=== PATIENT | male | born 1980 | race Caucasian/White ===

== ENCOUNTER 2019-03-21 14:02 | Emergency (ER) | payer OTHER ==
[2019-03-21] MEDS ORDERED: OXYCODONE/APAP 5/325 TAB PO ONE (14:18)
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
[2019-03-21 16:20] VITALS: BP 130/65
== END 2019-03-21 16:20 | disposition home or self-care (01) ==
PROC: 0PSHXZZ Reposition Right Radius, External Approach (ICD-10-PCS; principal; 2019-03-21)
DX: S52.571A Other intraarticular fracture of lower end of right radius, initial encounter for closed fracture (principal); S52.611A Displaced fracture of right ulna styloid process, initial encounter for closed fracture; V18.4XXA Pedal cycle driver injured in noncollision transport accident in traffic accident, initial encounter; Y93.55 Activity, bike riding
CPT/HCPCS: A4565; L3925

== ENCOUNTER → 2019-04-05 | Outpatient (CLI) | payer OTHER | LOC: BMCIMAGING 08:37 | PROVIDERS: ATTEND Orthopaedic Surgery Hand Surgery | DX: Z47.89 Encounter for other orthopedic aftercare (principal); S52.501A Unspecified fracture of the lower end of right radius, initial encounter for closed fracture; S52.611A Displaced fracture of right ulna styloid process, initial encounter for closed fracture ==

== ENCOUNTER → 2019-05-03 | Outpatient (CLI) | payer OTHER | LOC: BMCIMAGING 07:53 ==